=== PATIENT | female | born 1980 | race American Indian/Alaskan Native ===

== ENCOUNTER 2017-02-24 14:12 | Emergency (ER) | payer SELFPAY ==
[2017-02-24 14:42] VITALS: BP 128/87
--- NOTE | 2017-02-24 16:14 | Emergency Department Report ---
Chief Complaint: Chest Pain Stated Complaint: CHEST PAIN Time Seen by Provider: 02/24/17 16:14 - HPI History of Present Illness: Patient here reports that she's been having chest pain and shortness of breath for the last couple days. Pain is located to mid chest. She said the pain comes and goes. Denies any history of blood clots in her family or personally. Denies any medical problems. Denies any nausea or vomiting. Denies any history of control. No recent long distance travel by airplane or car. Denies any clotting disorder. Denies any swelling in legs. At present is 4 out of 10 to her mid chest area. Denies diabetes, high blood pressure or high cholesterol. - ROS Review of Systems: All systems are negative unless stated in HPI above - Exam Vital Signs: Vital Signs 02/24/17 14:36 Temperature 98 F Pulse Rate 65 Blood Pressure 128/87 O2 Sat by Pulse 98 Oximetry Respirations 16 bpm Physical Exam: Gen.: This is a 36-year-old female well-nourished well-developed in no acute distress. CV: S1, S2. Regular rate rhythm negative murmur Lungs: Clear to auscultate bilaterally. No rhonchi, wheezes or rales. Normal work of breathing. MSE screening note: Focused history and physical exam performed. Due to findings the following was ordered: ED Medical Decision Making - Medical Decision Making MDM: Patient screened by provider in triage area. Appropriate protocol initiated and patient to be seen in main ED by ED Disposition for MSE Condition: Stable Referrals: PRIMARY CARE, [Primary Care Provider] - 3-5 Days
[2017-02-24 16:38] LABS: Basophils % (Auto) 0.9 % (0.0-1.8); Eosinophils % (Auto) 2.4 % (0.0-4.3); Hematocrit 37.5 % (30.3-42.9); Hemoglobin 13.1 gm/dl (10.1-14.3); Mean Corpuscular HGB Conc 35 % (30-34); Mean Corpuscular Hemoglobin 31 pg (28-32); Mean Corpuscular Volume 88 fl (79-97); Platelet Count 237 K/mm3 (140-440); Red Blood Count 4.24 M/mm3 (3.65-5.03); Red Cell Distribution Width 13.1 % (13.2-15.2); White Blood Count 4.6 K/mm3 (4.5-11.0)
[2017-02-24 16:48] LABS: INR 0.97 (0.87-1.13)
[2017-02-24 16:49] LABS: Partial Thromboplastin Time 30.5 Sec. (24.2-36.6)
[2017-02-24 16:50] LABS: Anion Gap 14 mmol/L; BUN/Creatinine Ratio 13; Blood Urea Nitrogen 9 mg/dL (7-17); Calcium 8.6 mg/dL (8.4-10.2); Carbon Dioxide 26 mmol/L (22-30); Chloride 101.3 mmol/L (98-107); Glucose 87 mg/dL (65-100); Potassium 4.1 mmol/L (3.6-5.0); Sodium 137 mmol/L (137-145)
--- NOTE | 2017-02-25 07:15 | XRay Report ---
CHEST 2 VIEWS INDICATION: Mid chest pain, shortness of breath for 2-3 days. COMPARISON: None similar at this institution. FINDINGS: PA and lateral chest radiographs demonstrate normal cardiomediastinal silhouette. Clear lungs. Intact bones. CONCLUSION: No acute disease in the chest. Thank you for the opportunity to participate in this patient's care.
== END 2017-02-24 19:00 | disposition left against medical advice (07) ==
LOC: ED 14:12
DX: R07.9 Chest pain, unspecified (principal); R06.02 Shortness of breath; Z53.21 Procedure and treatment not carried out due to patient leaving prior to being seen by health care provider
CPT/HCPCS: 36415; 71020; 80048; 84484; 84703; 85025; 85610; 85730; 93005; 93010